=== PATIENT | female | born 1965 | race Caucasian/White ===

== ENCOUNTER 2017-01-12 12:20 | Emergency (ER) | payer SELFPAY ==
[2017-01-12 12:40] VITALS: RESP 18; O2SAT 100
--- NOTE | 2017-01-12 13:03 | C.PDOC ---
Time Seen by Provider: 01/12/17 12:43 Chief Complaint (Nursing): Abnormal Skin Integrity Past Medical History Vital Signs: Last Vital Signs Temp 98.1 F 01/12/17 12:34 Pulse 100 H 01/12/17 12:34 Resp 18 01/12/17 12:34 BP 137/78 01/12/17 12:34 Pulse Ox 100 01/12/17 12:34 - Medical History PMH: Hypothyroidism - Social History Hx Alcohol Use: No Hx Substance Use: No - Immunization History Hx Tetanus Toxoid Vaccination: Yes Hx Influenza Vaccination: No Hx Pneumococcal Vaccination: No ED Course And Treatment O2 Sat by Pulse Oximetry: 100 Disposition - Disposition Forms: [employer] (Pashto)
--- NOTE | 2017-01-12 13:11 | C.PDOC ---
History Of Present Illness 51 yr old female presents to the ER for evaluation of a rash to the right leg for the past 1 week. Patient describes it as a burning sensation but no itch. Denies fever, chills, nausea, vomiting, weakness or numbness. Time Seen by Provider: 01/12/17 12:43 Chief Complaint (Nursing): Abnormal Skin Integrity History Per: Patient History/Exam Limitations: no limitations Onset/Duration Of Symptoms: Days (1 week) Past Medical History Reviewed: Historical Data, Nursing Documentation, Vital Signs Vital Signs: Last Vital Signs Temp 98.5 F 01/12/17 13:54 Pulse 72 01/12/17 13:54 Resp 18 01/12/17 13:54 BP 112/66 01/12/17 13:54 Pulse Ox 100 01/12/17 14:03 - Medical History PMH: Hypothyroidism Family History: States: No Known Family Hx - Social History Hx Alcohol Use: No Hx Substance Use: No - Immunization History Hx Tetanus Toxoid Vaccination: Yes Hx Influenza Vaccination: No Hx Pneumococcal Vaccination: No Review Of Systems Except As Marked, All Systems Reviewed And Found Negative. Constitutional: Negative for: Fever, Chills Gastrointestinal: Negative for: Nausea, Vomiting Skin: Positive for: Rash (To the right leg) Physical Exam - Physical Exam Appears: Non-toxic, No Acute Distress Skin: Warm, Dry, Rash (Vesicular rash to the right inner thigh in a dermatomal distribution.) Head: Atraumatic, Normacephalic Eye(s): bilateral: Normal Inspection Oral Mucosa: Moist Back: Normal Inspection Extremity: Normal ROM, No Swelling Neurological/Psych: Oriented x3, Normal Speech, Normal Motor, Normal Sensation Gait: Steady ED Course And Treatment O2 Sat by Pulse Oximetry: 100 (RA) Pulse Ox Interpretation: Normal Medical Decision Making Medical Decision Making: PLAN: * Acyclovir PO * Prednisone PO The patient can be discharged home as she is immunocompotent. Her last chemotherapy was over 8 months ago and is no longer on therapy. Disposition - Disposition Referrals: [facility] [Outside] Disposition: HOME/ ROUTINE Disposition Time: 13:47 Condition: GOOD Additional Instructions: KEEP THE RASH COVERED IT IS CONTAGIOUS. Follow up with the medical doctor within 1-2 days, Return if worsened. Prescriptions: Acyclovir [Zovirax] 800 mg PO 5XD #34 tab Lidocaine/Aloe Vera [Aloe-Lidocaine 0.5% Gel] 227 gm TP BID PRN #1 gel..gram. PRN Reason: Pain, Moderate (4-7) predniSONE [Prednisone] 20 mg PO BID #10 tab Instructions: Shingles (DC) Forms: [employer] (Nauruan) - Clinical Impression Clinical Impression: Herpes zoster - PA / [employer] ALIGNER / Resident Statement MD/DO has reviewed & agrees with the documentation as recorded. - Scribe Statement The provider has reviewed the documentation as recorded by the Scribe Joan Echols All medical record entries made by the Scribatul were at my direction and personally dictated by me. I have reviewed the chart and agree that the record accurately reflects my personal performance of the history, physical exam, medical decision making, and the department course for this patient. I have also personally directed, reviewed, and agree with the discharge instructions and disposition.
[2017-01-12 13:55] VITALS: BP 112/66; PULSE 72; TEMP 98.5
== END 2017-01-12 14:07 | disposition home or self-care (01) ==
LOC: C.ER 12:20
DX: B02.9 Zoster without complications (principal)